=== PATIENT | male | born 1955 | race Caucasian/White ===

== ENCOUNTER 2019-08-11 21:57 | Inpatient (IN) | payer MEDICAID ==
[~2019-08-11] VITALS: Ht 167.6 cm; Wt 77.7 kg
[2019-08-11 22:00] VITALS: BP_SYST 182
[2019-08-11] MEDS ORDERED: D10W 250 ML IV SCH (22:45)
[2019-08-11 22:55] LABS: BASOPHILS # (AUTO) 0.1 K/uL (0.0-0.2); BASOPHILS % (AUTO) 1.1 % (0.0-2.0); EOSINOPHILS % (AUTO) 0.8 % (0.0-4.0); HEMOGLOBIN 12.8 g/dL (14.0-18.0); LYMPHOCYTES # (AUTO) 1.8 K/uL (1.0-5.5); LYMPHOCYTES % (AUTO) 29.4 % (20.5-51.5); MEAN CORPUSCULAR HEMOGLOBIN 31 pg (27-31); MEAN CORPUSCULAR HGB CONC 34 % (32-36); MEAN CORPUSCULAR VOLUME 93 fL (79.0-98.0); MONOCYTES # (AUTO) 0.7 K/uL (0.0-1.0); MONOCYTES % (AUTO) 12.5 % (1.7-9.3); NEUTROPHILS # (AUTO) 3.4 K/uL (1.8-7.7); NEUTROPHILS % (AUTO) 56.2 % (40.0-70.0); PLATELET COUNT (AUTO) 241 K/uL (130-430); RED BLOOD CELL COUNT(AUTO) 4.07 MIL/uL (4.2-6.2); RED CELL DISTRIBUTION WIDTH 13.7 % (9.0-15.0)
[2019-08-11 23:09] LABS: ANION GAP 10 (5-15); CALCIUM 8.8 mg/dL (8.4-11.0); CHLORIDE 103 mmol/L (98-107); CREATININE 2.46 mg/dL (0.55-1.30); GLUCOSE 77 mg/dL (70-99); POTASSIUM 3.8 mmol/L (3.5-5.1); SODIUM SERUM 137 mmol/L (136-145); UREA NITROGEN, BLOOD 35 mg/dL (8-21)
[2019-08-11 23:17] LABS: ALANINE AMINOTRANSFERASE 68 U/L (12-78); ALBUMIN 3.6 g/dL (3.4-4.8); ASPARTATE AMINOTRANSFERASE 42 U/L (10-37); LIPASE 358 U/L (73-393); TOTAL BILIRUBIN 0.1 mg/dL (0.0-1.0)
[2019-08-11] MEDS ORDERED: LOSA50TA28 PO (23:18)
[2019-08-11] MEDS ORDERED: SIMV40TA5 PO (23:18)
[2019-08-11] MEDS ORDERED: HYDR25TA4 PO (23:18)
[2019-08-11] MEDS ORDERED: GLIM4TAB2 PO (23:18)
[2019-08-11] MEDS ORDERED: AMLO2.5T2 PO ×2 (23:18→23:20)
[2019-08-11] MEDS ORDERED: METF-510 PO (23:20)
[2019-08-11] MEDS ORDERED: XALEYE OP (23:21)
[2019-08-11] MEDS ORDERED: BRI.2% EACH EYE (23:21)
[2019-08-11 23:22] LABS: GFR AFRICAN AMERICAN 34 mL/min (>90)
[2019-08-11 23:36] LABS: BILIRUBIN,URINE NEGATIVE (NEGATIVE); BLOOD, URINE NEGATIVE (NEGATIVE); CLARITY/URINE CLEAR (CLEAR); COLOR,URINE YELLOW (YELLOW); GLUCOSE,URINE NEGATIVE (NEGATIVE); KETONES,URINE NEGATIVE (NEGATIVE); LEUKOCYTE ESTERASE ,URINE NEGATIVE (NEGATIVE); NITRITE, URINE NEGATIVE (NEGATIVE); PH,URINE 6.5 (5.0-8.0); PROTEIN URINE 2+ (NEGATIVE); UROBILINOGEN,URINE 0.2 (0.2-1.0)
[2019-08-11 23:43] LABS: BACTERIA,URINE FEW /HPF (None Seen); RBC,URINE 0-3 /HPF (0-3); WBC,URINE 0-3 /HPF (0-3)
[2019-08-12] MEDS ORDERED: D5NS 1,000 ML IV SCH (00:34)
[2019-08-12] MEDS ORDERED: INSULIN REGULAR, HUMAN 100 UNITS/ML, 10 ML VIAL (humuLIN R) SUBCUT PRN (00:45)
[2019-08-12 01:30] VITALS: BP_SYST 155
[2019-08-12] MEDS ORDERED: MORPHINE 2 MG/ML INJ. SYRINGE IVP PRN ×2 (06:45)
[2019-08-12] MEDS ORDERED: MAGNESIUM SULFATE 50 ML IV PRN (06:45)
[2019-08-12] MEDS ORDERED: POTASSIUM CHLORIDE 20 MEQ TAB.PRT.SR PO PRN (06:45)
[2019-08-12] MEDS ORDERED: MUPIROCIN 2% TOPICAL OINTMENT 22 GM NS PRN (06:45)
[2019-08-12] MEDS ORDERED: ACETAMINOPHEN 325 MG TABLET PO PRN (06:45)
[2019-08-12] MEDS ORDERED: LORazepam 2 MG/ML VIAL IVP PRN (06:45)
[2019-08-12] MEDS ORDERED: ONDANSETRON HCL 4 MG/2 ML VIAL IVP PRN (06:45)
[2019-08-12] MEDS ORDERED: ZOLPIDEM TARTRATE 5 MG TABLET PO PRN (06:45)
[2019-08-12] MEDS ORDERED: DOCUSATE SODIUM 100 MG CAPSULE PO PRN (06:45)
[2019-08-12 08:00] VITALS: BP_SYST 138
[2019-08-12] MEDS ORDERED: amLODIPine BESYLATE 5 MG TABLET PO SCH (09:00)
[2019-08-12] MEDS ORDERED: HEPARIN SODIUM,PORCINE 5000 UNITS/ML VIAL SUBCUT SCH (09:00)
[2019-08-12] MEDS ORDERED: BRIMONIDINE TARTRATE 0.2% 5 mL EYE DROPS EACH EYE SCH (09:00)
[2019-08-12] MEDS ORDERED: LOSARTAN POTASSIUM 50 MG TABLET (COZAAR) PO SCH (09:00)
[2019-08-12] MEDS ORDERED: LATANOPROST 2.5 ML DROPS (XALATAN) OP SCH (09:00)
[2019-08-12 10:56] VITALS: BP_SYST 138
[2019-08-12 12:00] VITALS: BP_SYST 136
[2019-08-12] MEDS ORDERED: D10W 250 ML IV STA (23:43)
== END 2019-08-12 11:30 | disposition home or self-care (01) | DRG 48 ==
LOC: SED 21:57 → STU 08-12 00:34
PROVIDERS: ADMIT General Practice; ATTEND General Practice
DX: G90.8 Other disorders of autonomic nervous system (principal); N17.0 Acute kidney failure with tubular necrosis; E11.649 Type 2 diabetes mellitus with hypoglycemia without coma; E78.5 Hyperlipidemia, unspecified; I10 Essential (primary) hypertension; Z79.899 Other long term (current) drug therapy
CPT/HCPCS: 36415; 71045; 80053; 81000-TC; 82962; 83036; 83605; 83690-TC; 84484; 85025; 87040-TC; 99285; G0378; J1644; J7042

== ENCOUNTER 2019-08-19 20:09 | Inpatient (IN) | payer MEDICAID, SELFPAY ==
[~2019-08-19] VITALS: Ht 167.6 cm; Wt 74.8 kg
[~2019-08-19 20:09] MED LIST: AMLO2.5T2 PO; BRI.2% EACH EYE; LOSA50TA28 PO; SIMV40TA5 PO; XALEYE OP
--- NOTE | 2019-08-19 20:44 | NUR ---
Patient to ER bed 2 to gown for evaluation. Side rails up.
[2019-08-19 20:45] VITALS: BP_SYST 192
--- NOTE | 2019-08-19 21:04 | NUR ---
Pt's Son (Hang) informed he lives 2 blocks away from [facility], phone number [phone]. Call for update and anything else
--- NOTE | 2019-08-19 21:06 | NUR ---
Patient came to ER. C/O Dizziness and weakness x today. Patient states "headache and weakness x today this morning, check glucose this morning +400." HX DM and HTN. A/O,X4, weakness, headache, pain rate 5/10, place patient on library monitor, BP 174/92.
--- NOTE | 2019-08-19 21:22 | NUR ---
ER Dr. Haskins at bedside examining patient.
[2019-08-19] MEDS ORDERED: hydrALAZINE HCL 20 MG/ML VIAL IVP ONE ×2 (21:30→22:30)
[2019-08-19] MEDS ORDERED: GLIP5TAB13 PO (21:32)
[2019-08-19] MEDS ORDERED: GLUXR500 PO (21:32)
--- NOTE | 2019-08-19 21:33 | NUR ---
Patient came back from CT scan.
--- NOTE | 2019-08-19 21:35 | NUR ---
Accu check 51, Dr. Haskins notified, given oral juice 2 small cup, Patient A/O, X4.
[2019-08-19 21:42] LABS: BASOPHILS % (AUTO) 0.3 % (0.0-2.0); EOSINOPHILS % (AUTO) 0.4 % (0.0-4.0); HEMOGLOBIN 12.2 g/dL (14.0-18.0); LYMPHOCYTES # (AUTO) 1.7 K/uL (1.0-5.5); LYMPHOCYTES % (AUTO) 28.8 % (20.5-51.5); MEAN CORPUSCULAR HEMOGLOBIN 31 pg (27-31); MEAN CORPUSCULAR HGB CONC 34 % (32-36); MEAN CORPUSCULAR VOLUME 90 fL (79.0-98.0); MONOCYTES # (AUTO) 0.6 K/uL (0.0-1.0); MONOCYTES % (AUTO) 9.5 % (1.7-9.3); NEUTROPHILS # (AUTO) 3.6 K/uL (1.8-7.7); PLATELET COUNT (AUTO) 188 K/uL (130-430); RED BLOOD CELL COUNT(AUTO) 3.99 MIL/uL (4.2-6.2); RED CELL DISTRIBUTION WIDTH 12.7 % (9.0-15.0); WHITE BLOOD COUNT (AUTO) 5.9 K/uL (4.8-10.8)
[2019-08-19 21:48] LABS: ANION GAP 9 (5-15); CALCIUM 8.4 mg/dL (8.4-11.0); CHLORIDE 102 mmol/L (98-107); CREATININE 2.63 mg/dL (0.55-1.30); GLUCOSE 66 mg/dL (70-99); POTASSIUM 3.9 mmol/L (3.5-5.1); SODIUM SERUM 134 mmol/L (136-145); UREA NITROGEN, BLOOD 43 mg/dL (8-21)
[2019-08-19 21:49] LABS: GFR AFRICAN AMERICAN 32 mL/min (>90)
[2019-08-19 21:57] LABS: ALANINE AMINOTRANSFERASE 29 U/L (12-78); ALBUMIN 3.1 g/dL (3.4-4.8); ASPARTATE AMINOTRANSFERASE 19 U/L (10-37); TOTAL BILIRUBIN 0.3 mg/dL (0.0-1.0)
[2019-08-19 22:19] LABS: BILIRUBIN,URINE NEGATIVE (NEGATIVE); BLOOD, URINE 1+ (NEGATIVE); CLARITY/URINE CLEAR (CLEAR); COLOR,URINE YELLOW (YELLOW); GLUCOSE,URINE NEGATIVE (NEGATIVE); KETONES,URINE NEGATIVE (NEGATIVE); LEUKOCYTE ESTERASE ,URINE NEGATIVE (NEGATIVE); NITRITE, URINE NEGATIVE (NEGATIVE); PROTEIN URINE 3+ (NEGATIVE)
--- NOTE | 2019-08-19 22:19 | NUR ---
Accu check 77, BP 178/94 -Dr. Haskins notified.
[2019-08-19 22:26] LABS: BACTERIA,URINE None Seen /HPF (None Seen); MUCUS,URINE None Seen /LPF (None Seen); RBC,URINE NONE SEEN /HPF (0-3); WBC,URINE NONE SEEN /HPF (0-3)
[2019-08-20] MEDS: NACL 0.9% 1,000 ML IV SCH ×3 (00:04→20:04)
--- NOTE | 2019-08-20 00:16 | NUR ---
Medication reconciliation completed with information provided by patient. Any prior medication reconciliation on file was reviewed and corrected.
--- NOTE | 2019-08-20 00:21 | NUR ---
Patient will be admitted to care of Dr. Pappas. Admitted to Tele unit. Will go to room 103B. Belongings list completed. Complete and up to date summary report printed. SBAR report to be given at bedside with opportunity for questions.
--- NOTE | 2019-08-20 00:39 | NUR ---
ADMIT NOTE Received pt from ER to the floor with a diagnosis of intractable dizziness. Admission process initiated. patient oriented to pain management, safety and call light-teach back done.
--- NOTE | 2019-08-20 00:40 | NUR ---
Transfer to Tele via ACLS protocol. Licensed nurse present. IV present no signs or symptoms of infiltration.
[2019-08-20 00:54] VITALS: BP_SYST 144
--- NOTE | 2019-08-20 02:30 | NUR ---
ROUNDS pt lying in bed. no signs of acute distress noted. breathing is even and unlabored. iv site patent, no signs of infiltration and infection. bed in lowest position and locked. bed alarm is on. call light with patient. verbalized and demonstrated understanding to use call light if help is needed. will continue to monitor.
--- NOTE | 2019-08-20 04:30 | NUR ---
ROUNDS pt still in bed, sleeping. no signs of discomfort noted. safety and fall precautions in place. will continue to monitor.
[2019-08-20] MEDS ORDERED: DEXTROSE 50% JECT 50 ML DISP.SYRIN IVP ONE (06:30)
[2019-08-20] MEDS ORDERED: DEXTROSE 50% JECT 50 ML DISP.SYRIN ONE (06:51)
--- NOTE | 2019-08-20 06:55 | NUR ---
CLOSING NOTES/BLOOD SUGAR pt lying in bed. no signs of acute distress. iv site patent, no infiltration and infection noted. ivf infusing well. bed at lowest position and locked. bed alarm is on. call light with pt, verbalized understanding to call for help if needed. accucheck done at 0620, BS 22, pt given 2 boxes of orange juice, Dr ramsey made aware, ordered D50 IVP, reassessed at 0650, BS at 212. pt denies any pain or discomfort. skin is dry and warm to touch. all needs met at this time. will endorse to day shift.
--- NOTE | 2019-08-20 07:15 | NUR ---
Received patient and endorsed report from [facility] shift nurse. In no acute distress. Greeted patient. Awake in bed with side rails x 3 up call light with in reach. Denies pain. Breathing even and unlabored on room air.
[2019-08-20 07:37] LABS: BASOPHILS % (AUTO) 0.5 % (0.0-2.0); HEMATOCRIT 36.7 % (36-54); HEMOGLOBIN 12.4 g/dL (14.0-18.0); LYMPHOCYTES # (AUTO) 0.9 K/uL (1.0-5.5); LYMPHOCYTES % (AUTO) 19.2 % (20.5-51.5); MEAN CORPUSCULAR HEMOGLOBIN 31 pg (27-31); MEAN CORPUSCULAR HGB CONC 34 % (32-36); MEAN CORPUSCULAR VOLUME 91 fL (79.0-98.0); MONOCYTES # (AUTO) 0.5 K/uL (0.0-1.0); MONOCYTES % (AUTO) 10.6 % (1.7-9.3); NEUTROPHILS # (AUTO) 3.4 K/uL (1.8-7.7); NEUTROPHILS % (AUTO) 69.7 % (40.0-70.0); PLATELET COUNT (AUTO) 190 K/uL (130-430); RED BLOOD CELL COUNT(AUTO) 4.05 MIL/uL (4.2-6.2); RED CELL DISTRIBUTION WIDTH 12.6 % (9.0-15.0); WHITE BLOOD COUNT (AUTO) 4.9 K/uL (4.8-10.8)
[2019-08-20 07:49] LABS: CALCIUM 8.3 mg/dL (8.4-11.0); CREATININE 2.65 mg/dL (0.55-1.30); POTASSIUM 3.7 mmol/L (3.5-5.1); TOTAL BILIRUBIN 0.3 mg/dL (0.0-1.0)
--- NOTE | 2019-08-20 09:15 | NUR ---
Patient sitting in bed eating breakfast awake and alert in no acute distress. Breathing even and unlabored on room air. Denies pain. Call light with in reach.
[2019-08-20] MEDS: LOSARTAN POTASSIUM 50 MG TABLET (COZAAR) PO SCH ×2 (09:21→20:53)
[2019-08-20] MEDS: HEPARIN SODIUM,PORCINE 5000 UNITS/ML VIAL SUBCUT SCH ×2 (09:24→20:55)
--- NOTE | 2019-08-20 11:15 | NUR ---
Patient sleeping in bed with side rails x 3 up. Call light with in reach. Breathing even and unlabored on room air.
[2019-08-20 12:00] VITALS: BP_SYST 113
--- NOTE | 2019-08-20 13:15 | NUR ---
Patient sitting in bed with side rails x 3 up call light with in reach. Eating lunch. Breathing even and unlabored. In no acute distress. Denies pain,.
--- NOTE | 2019-08-20 14:23 | NUR ---
Called MD Leigh regarding patient's statement of having a headache with 3/10 pain scale. New order Tylenol 500 mg every 6 hours as needed for mild pain. Orders placed.
[2019-08-20] MEDS ORDERED: ACETAMINOPHEN 500 MG TABLET ONE (14:41)
--- NOTE | 2019-08-20 15:15 | NUR ---
Patient stated headache is gone. Sleeping in bed with side rails x 3 up call light with in reach. Breathing even and unlabored on room air. In no acute distress. Addendum: 08/20/19 at 1838 by Nadya Li RN *Note error: Patient was awake.
[2019-08-20] MEDS: ACETAMINOPHEN 325 MG TABLET PO PRN ×2 (15:23→21:36)
[2019-08-20 16:10] VITALS: BP_SYST 127
--- NOTE | 2019-08-20 17:15 | NUR ---
Patient sitting in bed awake and alert. Denies pain. Breathing even and unlabored. Call light with in reach. Side rails x 3 up.
--- NOTE | 2019-08-20 18:38 | NUR ---
Patient sitting in bed awake and alert, eating dinner. Denies pain. Breathing even and unlabored. Call light with in reach. Side rails x 3 up.
--- NOTE | 2019-08-20 19:15 | NUR ---
OPENING NOTES received report from day shift rn. pt lying in bed, aox3. no signs of acute distress noted. ivf infusing well, no signs of infiltration and infection noted. skin is warm and dry to touch. no signs of hypoglycemia at this time. bed alarm is on, bed at lowest position and locked. call light with pt, educated pt to utilize call light if help is needed, demonstrated back proper use of call light. will continue to monitor.
--- NOTE | 2019-08-20 19:18 | NUR ---
Endorsed patient and gave report to NOC shift nurse. Patient sitting in bed. Side rails x 3 up. Call light with in reach. Denies pain.
[2019-08-20 20:00] VITALS: BP_SYST 159
--- NOTE | 2019-08-20 21:00 | NUR ---
ROUNDS pt lying in bed. no signs of acute distress. safety and fall precautions in place. will continue to monitor.
[2019-08-20] MEDS ORDERED: DEXTROSE 50% JECT 50 ML DISP.SYRIN IVP PRN (22:00)
[2019-08-20] MEDS ORDERED: D5NS 1,000 ML IV SCH (22:00)
--- NOTE | 2019-08-20 23:00 | NUR ---
ROUNDS pt is still in bed. no signs of discomfort noted. safety and fall precautions maintained. will continue to monitor.
[2019-08-21 00:38] VITALS: BP_SYST 137
--- NOTE | 2019-08-21 01:00 | NUR ---
ROUNDS/ORAL CARE pt requested to use bathroom and for oral care. pt ambulated with assist to bathroom and back to bed, pt tolerated well. no signs of acute distress noted. safety and fall precautions maintained. will continue to monitor.
--- NOTE | 2019-08-21 03:00 | NUR ---
ROUNDS pt lying in bed, asleep. no signs of discomfort noted. safety and fall precautions in place. will continue to monitor.
--- NOTE | 2019-08-21 05:00 | NUR ---
ROUNDS pt is lying in bed. no discomfort noted. safety and fall precautions in place. will continue to monitor.
[2019-08-21] MEDS: ACETAMINOPHEN 325 MG TABLET PO PRN ×2 (06:14→16:41)
[2019-08-21] MEDS: D10W 1,000 ML IV SCH ×2 (06:47→21:20)
--- NOTE | 2019-08-21 06:54 | NUR ---
CLOSING NOTES/NEW IV SITE/HYPOGLYCEMIA pt lying in bed. no signs of distress noted. dc'ed left AC iv site, catheter fully intact, no active bleeding noted. inserted new iv at right FA 20G, no signs of infiltration noted, ivf infusing well. Accucheck done, BS at 40, D50 administered per PRN order, reassessed BS at 183, Dr. Leigh made aware, MD ordered D10W at 80 ml/hr. Skin warm and dry to touch, no s/s of hypoglycemia at this time. All needs met throughout shift. Fall and safety precautions maintained throughout shift. Will continue to monitor until patient care is endorsed to oncoming dayshift nurse.
[2019-08-21 07:00] VITALS: BP_SYST 128
--- NOTE | 2019-08-21 07:20 | NUR ---
Report obtained from night nurse LIZZY Rosado and this nurse assume care of patient from 0730 to 1030. Patient stated that since patient had elevated temp during the night, he would be antisqueak filler for COVID, but needed to be transferred to [place]. Report given to nurse on and patient was transferred via bed. VS this am- 98.6 F-92-18, BP 128/65, O2 sat- 94% RA. Had a cough about 1000. IV D10 infusing at 80 ml/hr into R FA, with 20 g catheter. Addendum: 08/21/19 at 1407 by Jayda Espinoza RN REPORT OBTAINED FROM NIKO MICHAEL RN THIS AM, AND REPORT GIVEN TO LIZZY ROSADO ON . SHE IS AWARE TO DO COVID SWAB AND ABOUT BLOOD GLUCOSE TO BE DONE AC & HS. TRANSFERRED VIA BED, AT 1030, TO .
[2019-08-21 07:47] LABS: BASOPHILS % (AUTO) 0.4 % (0.0-2.0); EOSINOPHILS % (AUTO) 0.1 % (0.0-4.0); HEMATOCRIT 33.4 % (36-54); HEMOGLOBIN 11.3 g/dL (14.0-18.0); LYMPHOCYTES # (AUTO) 1.7 K/uL (1.0-5.5); LYMPHOCYTES % (AUTO) 25.5 % (20.5-51.5); MEAN CORPUSCULAR HEMOGLOBIN 30 pg (27-31); MEAN CORPUSCULAR HGB CONC 34 % (32-36); MEAN CORPUSCULAR VOLUME 90 fL (79.0-98.0); MONOCYTES # (AUTO) 0.5 K/uL (0.0-1.0); NEUTROPHILS # (AUTO) 4.3 K/uL (1.8-7.7); PLATELET COUNT (AUTO) 199 K/uL (130-430); RED BLOOD CELL COUNT(AUTO) 3.71 MIL/uL (4.2-6.2); RED CELL DISTRIBUTION WIDTH 12.7 % (9.0-15.0); WHITE BLOOD COUNT (AUTO) 6.6 K/uL (4.8-10.8)
[2019-08-21 07:57] LABS: CALCIUM 7.8 mg/dL (8.4-11.0); CREATININE 2.29 mg/dL (0.55-1.30); POTASSIUM 3.9 mmol/L (3.5-5.1)
[2019-08-21 08:00] VITALS: BP_SYST 128
[2019-08-21] MEDS: HEPARIN SODIUM,PORCINE 5000 UNITS/ML VIAL SUBCUT SCH ×2 (09:32→21:24)
[2019-08-21] MEDS: LOSARTAN POTASSIUM 50 MG TABLET (COZAAR) PO SCH ×2 (09:33→21:20)
[2019-08-21 09:49] LABS: ERYTHROCYTE SEDIMENTATION RATE 80 MM/HR (0-15)
--- NOTE | 2019-08-21 10:55 | NUR ---
ASSUMED PATIENT CARE RESTING IN BED, NO SIGN OF DISTRESS ON ROOM AIR. NO PAIN AT THIS TIME. AFEBRILE. TRANSFERRED PATIENT TO AN ISOLATION ROOM TO RULE OUT POSSIBLE COVID-19. EXPLAINED TO PATIENT REASON FOR ISOLATION AND VERBALIZED UNDERSTANDING. PATIENT REPORTED COUGHING OUT CLEAR, THIN SPUTUM. ATTEMPTED TO GET SPECIMEN FOR COVID TEST VIA NASAL SWAB BUT PATIENT DID NOT TOLERATE IT AND SAID IT WAS TOO PAINFUL. ORAL SWAB DONE INSTEAD. ROOM ORIENTATION DONE. FALL AND SAFETY CHECKS DONE. ENCOURAGED TO CALL ANYTIME FOR HELP. SPECIMEN BROUGHT TO LAB.
[2019-08-21 12:19] VITALS: BP_SYST 146
[2019-08-21] MEDS: INSULIN REGULAR, HUMAN 100 UNITS/ML, 10 ML VIAL (humuLIN R) SUBCUT PRN ×2 (12:30→21:24)
--- NOTE | 2019-08-21 12:30 | NUR ---
BLOOD SUGAR CHECK RESULT OF 170 MG/DL
--- NOTE | 2019-08-21 14:20 | NUR ---
BOWEL MOVEMENT AMBULATES INDEPENDENTLY TO THE RESTROOM. DENIES ANY PAIN OR SHORTNESS OF BREATH. NO DIZZINESS. ATE MOST OF HIS LUNCH. SAFETY CHECKS DONE. WILL CONTINUE TO MONITOR.
[2019-08-21 16:30] VITALS: BP_SYST 158
--- NOTE | 2019-08-21 16:45 | NUR ---
HEADACHE AND BLOOD SUGAR CHECK RESTING IN BED, NO SHORTNESS OF BREATH ON ROOM AIR. IVF STILL INFUSING WELL. PATIENT COMPLAINED OF HEADACHE. ENCOURAGED TO DRINK MORE FLUIDS, AND DEEP BREATHING. ADMINISTERED TYLENOL. BLOOD SUGAR CHECK OF 140 GM/DL AT THIS TIME. FALL AND SAFETY CHECKS DONE. WILL CONTINUE TO MONITOR.
[2019-08-21] MEDS ORDERED: AZITHROMYCIN 250 MG TABLET PO ONE (18:45)
--- NOTE | 2019-08-21 18:49 | NUR ---
COVID POSITIVE, CLOSING NOTES RECEIVED A CALL FROM LAB STAFF, THUAN CONFIRMING THAT THE PATIENT IS POSITIVE FOR COVID-19. WILL INFORM DR[address] MACK. PATIENT IS RESTING IN BED AT THIS TIME. NO SHORTNESS OF BREATH, AFEBRILE AND DENIES ANY PAIN. IVF INFUSING WELL. ENCOURAGED TO EAT DINNER. ALL NEEDS MET THROUGHOUT SHIFT. SAFETY CHECKS DONE. CALL LIGHT WITHIN REACH. WILL ENDORSE TO NIGHT NURSE.
--- NOTE | 2019-08-21 19:19 | NUR ---
CONSULTATION PAGED/CALLED Reason for Consultation: COVID POSITIVE Person Who was Notified: KARAN Consulting Physician: POONAM Software Educator Specialty: Ordering Physician: FREDERICK
--- NOTE | 2019-08-21 19:30 | NUR ---
Opening note Received SBAR report from LIZZY Rosado. Presently patient is sinus rhythm on telemonitor. Reviewed eMAR and orders, will continue with plan of care.
[2019-08-21 20:20] VITALS: BP_SYST 166
--- NOTE | 2019-08-21 21:25 | NUR ---
Meds Due medications given. Patient educated on indication/side effects and he verbalized understanding. He reports that he didn't like his meal and requested gelatin and orange juice snacks which were provided. Fingerstick BG test done w/result of 227mg/dL and it was covered with insulin per sliding scale. Safety precautions in place and call light w/in reach.
[2019-08-21] MEDS: ASCORBIC ACID 500 MG TABLET PO SCH (21:31)
[2019-08-22] VITALS (8 sets, daily range): BP systolic 139–176
[2019-08-22] MEDS: ACETAMINOPHEN 325 MG TABLET PO PRN ×4 (00:58→20:05)
--- NOTE | 2019-08-22 01:00 | NUR ---
rounds Patient awake, he reports mild headache, and administered Tylenol. Will continue to monitor.
--- NOTE | 2019-08-22 02:00 | NUR ---
Rounds Patient resting in bed, eyes closed, though easy to awake. Reports no longer has headache; temp decreased to 98.9. IVF infusing well. Patient requested lights off and has no further needs. Safety precautions in place and call light w/in reach.
--- NOTE | 2019-08-22 03:40 | NUR ---
resting Patient resting in bed, no sign of distress. Nonlabored breathing noted. Call light w/in reach, will continue to monitor.
--- NOTE | 2019-08-22 05:00 | NUR ---
son Hang Patient's son Hang called to ask how his father is doing. I updated him and answered his questions, though I did not provide specific test results.
[2019-08-22] MEDS: INSULIN REGULAR, HUMAN 100 UNITS/ML, 10 ML VIAL (humuLIN R) SUBCUT PRN ×3 (07:04→17:55)
--- NOTE | 2019-08-22 07:05 | NUR ---
closing notes / accucheck Patient resting in comfortable position, denies pain. fingerstick bg test done w/ result of 235 and 4u insulin given per sliding scale order. Patient had temp of 100.8 and tylenol given as ordered. Provided pitcher of ice water. Safety and isolation precautions in place. Needs met throughout shift, will endorse care.
--- NOTE | 2019-08-22 07:07 | NUR ---
Nutrition Update Billy Scale 16 noted. Pt admitted for Intractable Dizziness Diet: [facility] BMI: 26.6 kg/m2 RD to follow per nutrition care standards.
[2019-08-22] MEDS: D10W 1,000 ML IV SCH ×2 (08:00→20:15)
--- NOTE | 2019-08-22 08:00 | NUR ---
INITIAL NOTES RESTING IN BED, NO SHORTNESS OF BREATH ON ROOM AIR. DENIES ANY PAIN. AFEBRILE. IVF INFUSING WELL. AMBULATES INDEPENDENTLY TO THE RESTROOM. ENCOURAGED TO EAT BREAKFAST. FALL AND SAFETY CHECKS IN PLACE. CALL LIGHT WITHIN REACH. WILL CONTINUE TO MONITOR.
[2019-08-22] MEDS: AZITHROMYCIN 250 MG TABLET PO SCH (08:30)
[2019-08-22] MEDS: ASCORBIC ACID 500 MG TABLET PO SCH ×2 (08:30→12:45)
[2019-08-22] MEDS: HEPARIN SODIUM,PORCINE 5000 UNITS/ML VIAL SUBCUT SCH (08:30)
[2019-08-22] MEDS: LOSARTAN POTASSIUM 50 MG TABLET (COZAAR) PO SCH ×2 (08:30→20:03)
--- NOTE | 2019-08-22 09:00 | NUR ---
MED PASS PATIENT ATE MOST OF HIS BREAKFAST. ENCOURAGED MORE FLUIDS. TOOK HIS MEDICATIONS WELL, EXPLAINED BENEFITS, VERBALIZED UNDERSTANDING. SAFETY CHECKS DONE. WILL CONTINUE TO MONITOR.
--- NOTE | 2019-08-22 09:50 | NUR ---
CONSULTATION PAGED/CALLED Reason for Consultation: [] POSITIVE COVID Person Who was Notified: [] DR COPELAND Consulting Physician: [] DR COPELAND Freelance Copywriter Specialty: [] PULMO Ordering Physician: [] DR MACK
[2019-08-22] MEDS ORDERED: ENOXAPARIN SODIUM 40 MG/0.4 ML SYRINGE SUBCUT ONE (10:30)
--- NOTE | 2019-08-22 11:00 | NUR ---
ROUNDS DR. MACK MADE ROUNDS. INFORMED THAT PATIENT'S BLOOD SUGAR IS NOW STABLE. HE MADE ORDERS TO CHANGE THE IVF TO D5 WATER AT THE SAME RATE.
[2019-08-22] MEDS: D5W 1,000 ML IV SCH ×2 (11:33→23:59)
--- NOTE | 2019-08-22 12:08 | NUR ---
BLOOD SUGAR CHECK RESULT OF 325 MG/DL. INSULIN COVERAGE GIVEN. NO SHORTNESS OF BREATH AND IS AFEBRILE AT THIS TIME. WILL CONTINUE TO MONITOR.
[2019-08-22] MEDS ORDERED: IVERMECTIN 3 MG TABLET PO ONE (12:45)
[2019-08-22] MEDS: ENOXAPARIN SODIUM 40 MG/0.4 ML SYRINGE SUBCUT SCH (12:45)
[2019-08-22] MEDS: CHOLECALCIFEROL (VITAMIN D3) 2,000 UNIT TABLET PO SCH (13:30)
--- NOTE | 2019-08-22 13:50 | NUR ---
MED PASS EXPLAINED TO PATIENT BENEFITS OF HIS NEW MEDICATIONS, VERBALIZED UNDERSTANDING. TOOK HIS MEDS WELL. SAFETY CHECKS DONE. WILL CONTINUE TO MONITOR
--- NOTE | 2019-08-22 15:21 | NUR ---
FEVER 100.4 FEBRILE. ENCOURAGED TO DRINK MORE FLUIDS. ADVISED PATIENT TO ASSUME A PRONE OR SIDE-LYING POSITION. GAVE TYLENOL FOR FEVER. WILL CONTINUE TO MONITOR.
--- NOTE | 2019-08-22 16:10 | NUR ---
AFEBRILE TEMPERATURE RECHECKED 98.2. DENIES ANY PAIN OR SHORTNESS OF BREATH. ENCOURAGED FLUIDS. PROVIDED WITH MORE COOLING MEASURES. SAFETY CHECKS DONE. WILL CONTINUE TO MONITOR.
--- NOTE | 2019-08-22 18:45 | NUR ---
CLOSING NOTES RESTING IN BED, TALKING TO FAMILY. NO SIGN OF PAIN OR SHORTNESS OF BREATH. IVF INFUSING WELL. ALL NEEDS MET THROUGHOUT SHIFT. FALL AND SAFETY CHECKS IN PLACE. CALL LIGHT WITHIN REACH. WILL ENDORSE TO NIGHT NURSE.
--- NOTE | 2019-08-22 19:50 | NUR ---
Opening note Received patient awake, resting in bed, covered in blankets and reporting he is cold. He has temp of 102.0, All of his dinner is on tray, he reports he has no appetite, and adds he [place] not taste or smell the food and does not like it., He also reports a headache, will administer tylenol as ordered and provide cooling measures. Updated board and reviewed plan of care.
--- NOTE | 2019-08-22 21:00 | NUR ---
Pagevel Leigh s/w Dr. Leigh and informed temp of 102 and elevated B/P Cozar and Tylenol given. Also informed he does not have PRN B/P meds; he said wait for Cozar to have effect and patient is Covid +. I informed notifying d/t sepsis critieria and he said no further orders. I asked if he has notified family patient is Covid + and he said he has not spoken with son after result came back + and also said that I can inform son of positive result.
--- NOTE | 2019-08-22 21:15 | NUR ---
Temp reassess Temp decreased to 101.0, B/P decreased to 139/75 HR 92 and he reports headache is gone. He covered himself with blanket and I removed it, explained he still has temp and let him cover with sheet. Continued with cooling measures, and will reassess-continue to monitor.
--- NOTE | 2019-08-22 22:10 | NUR ---
Temp reassess temp continues to decrease, presently at 100.3. Provided with cooling measures, and encouraged patient to drink ice water. Patient denies headache, dizzines. Will continue to monitor.
--- NOTE | 2019-08-22 23:05 | NUR ---
rounds Patient is awake, temp is 99.1. Patient put on his PJ pants and covered self with blanket. No SOB, denies pain. No longer on cooling measures.
[2019-08-23 00:05] VITALS: BP_SYST 153
[2019-08-23] MEDS: ACETAMINOPHEN 325 MG TABLET PO PRN ×3 (01:31→19:05)
--- NOTE | 2019-08-23 01:34 | NUR ---
Temp 100.1 / tylenol Tylenol given for temp of 100.1, Patient denies headache, does not want cooling measure. IVF infusing well. Will continue to monitor.
--- NOTE | 2019-08-23 02:25 | NUR ---
temp recheck temp is 99.5
--- NOTE | 2019-08-23 04:30 | NUR ---
sleeping resting, no sign of distress, nonlabored breathing
--- NOTE | 2019-08-23 04:45 | NUR ---
s/w son s/w son Hang, he is aware of patients diagnosis
[2019-08-23 05:30] VITALS: BP_SYST 145
[2019-08-23] MEDS: INSULIN REGULAR, HUMAN 100 UNITS/ML, 10 ML VIAL (humuLIN R) SUBCUT PRN ×4 (07:00→22:33)
--- NOTE | 2019-08-23 07:00 | NUR ---
closing notes / accucheck Patient resting in comfortable position, denies pain. fingerstick bg test done w/ result of 203 and 4u insulin given per sliding scale order. Provided pitcher of ice water. Safety and isolation precautions in place. Needs met throughout shift, will endorse care.
[2019-08-23] MEDS: ENOXAPARIN SODIUM 40 MG/0.4 ML SYRINGE SUBCUT SCH ×2 (07:39→09:00)
[2019-08-23 08:00] VITALS: BP_SYST 146
--- NOTE | 2019-08-23 08:00 | NUR ---
Opening Notes & Tylenol x fever Patient is awake, alert and oriented x4, resting in bed. Patient denies any pain at this time. No resp distress noted. Breathing is even and unlabored. Patient was noted with an elevated temperature of 100.5 F. Patients blankets were removed, cold packs placed underneath armpits. Nurse administered Tylenol 650 mg PO x fever. IV site noted on right FA, 20 gauge. D5W @ 80 ml/hr, infusing well. Skin intact. Patient reported c/o cough, requesting cough medicine. Will ask Dr. Leigh. Patient is ambulatory, steady gait. All needs met at this time. Safety and fall precautions in place. Call light within reach. Bed in lowest position, locked. Will continue to monitor.
[2019-08-23] MEDS: D10W 1,000 ML IV SCH (08:45)
[2019-08-23] MEDS: AZITHROMYCIN 250 MG TABLET PO SCH (09:00)
[2019-08-23] MEDS ORDERED: ENOXAPARIN SODIUM 40 MG/0.4 ML SYRINGE SUBCUT SCH (09:00)
[2019-08-23] MEDS: LOSARTAN POTASSIUM 50 MG TABLET (COZAAR) PO SCH ×2 (09:00→22:00)
[2019-08-23] MEDS: CHOLECALCIFEROL (VITAMIN D3) 2,000 UNIT TABLET PO SCH (09:00)
[2019-08-23] MEDS: ASCORBIC ACID 500 MG TABLET PO SCH (09:00)
--- NOTE | 2019-08-23 09:30 | NUR ---
Fever Reassessment Patients temperature was noted at 98.6. No distress noted at this time. Will continue to monitor.
--- NOTE | 2019-08-23 11:30 | NUR ---
Blood Sugar Patients blood sugar was noted at 289 mg/dL. Administered 6 units of regular insulin per sliding scale, tolerated well. Will continue to monitor.
[2019-08-23 12:00] VITALS: BP_SYST 135
--- NOTE | 2019-08-23 12:30 | NUR ---
Notes Patient is awake, alert and oriented x3, resting in bed. No resp distress noted. Breathing is even and unlabored. Patient denies any pain at this time. All needs met at this time. Patient is eating lunch at this time. Safety and fall precautions in place. Call light within reach. Bed in lowest position, alarm on, locked.
[2019-08-23] MEDS: D5W 1,000 ML IV SCH (12:59)
--- NOTE | 2019-08-23 14:20 | NUR ---
Notes Patient is resting in bed. No resp distress noted. Breathing is even and unlabored. Patient is ambulatory and able to assist self to restroom. No needs at this time. Safety and fall measures in place. Call light within reach. Bed in lowest position, alarm on, locked.
[2019-08-23 16:00] VITALS: BP_SYST 153
--- NOTE | 2019-08-23 16:00 | NUR ---
Elevated D-Dimer Reported elevated D-Dimer to Dr. Pearce. D-Dimer of 913. Obtained new orders. Continue with Lovenox IM injection 1 mg/kg Q12H. Placed a telephone order with pharmacy. Noted and carried out.
--- NOTE | 2019-08-23 16:06 | NUR ---
Notes Patient is resting in bed, eyes closed. No resp distress noted at this time. Breathing is even and unlabored. Patient denies any pain at this time. All needs met at this time. Safety and fall precautions in place. Call light within reach. Bed in lowest position, locked. Will continue to monitor.
[2019-08-23] MEDS ORDERED: ENOXAPARIN SODIUM 80 MG/0.8 ML SYRINGE SUBCUT ONE (17:00)
--- NOTE | 2019-08-23 17:30 | NUR ---
Blood Sugar Patients blood sugar was noted at 260 mg/dL. Administered 6 units of regular insulin per sliding scale. Tolerated well. Will continue to monitor.
[2019-08-23] MEDS: NACL 0.9% 1,000 ML IV SCH (18:13)
--- NOTE | 2019-08-23 18:35 | NUR ---
Elevated Temperature Patients temperature was noted at 100.1 F via temporal artery scan. Patient was given cold packs to place underneath armpits and Tylenol 650 mg for fever. Tolerated well. Will continue to monitor.
--- NOTE | 2019-08-23 19:00 | NUR ---
Closing Notes Patient is resting in bed, eating dinner. No resp distress noted at this time. Breathing is even and unlabored. Patient denies any pain at this time. Emptied of urinal, 1000 cc of clear and yellow urine. Safety and fall measures in place. Call light within reach. Bed in lowest position, alarm on, locked. Will endorse to next nurse.
--- NOTE | 2019-08-23 19:30 | NUR ---
OPENING NOTE RECEIVED CARE OF PT AND SBAR REPORT. PT IS AWAKE AND ORIENTED, RESTING IN BED, NO S/S OF ACUTE DISTRESS NOTED AT THIS TIME. BREATHING IS UNLABORED TO ROOM AIR, NO S/S OF RESPIRATORY DISTRESS NOTED. PT IS SR ON TELE MONITOR. SAFETY AND FALL PRECAUTIONS ARE IN PLACE. BED IS LOCKED IN LOWEST POSITION. CALL LIGHT IS WITH PT. ISOLATION PRECAUTIONS MAINTAINED. WILL MONITOR.
[2019-08-23 20:00] VITALS: BP_SYST 140
--- NOTE | 2019-08-23 21:04 | NUR ---
REPORT GIVEN TO LIZZY JOSEPH FOR CONTINUITY OF CARE.
--- NOTE | 2019-08-23 21:05 | NUR ---
OPENING NOTE/RECEIVED REPORT FROM LIZZY BALDERAS: Bedside report was given from LIZZY Balderas. No further questions noted. Patient is awake at this time, AOx4. No s/s of acute distress noted. Breathing is even and unlabored. IVF infusing well. IV site without s/s of infection or infiltration. Bed locked in lowest position, call light with patient. Patient educated on importance and use of call light. Patient verbalized understanding and demonstrated proper use. Bed alarm not indicated as patient is ambulatory unassisted with a steady gait. No new needs at this time. Will continue to monitor.
--- NOTE | 2019-08-23 23:39 | NUR ---
ROUNDS: Patient is asleep at this time. Breathing is even and unlabored. Bed locked in lowest position, call light with patient. Will continue to monitor.
[2019-08-24] VITALS: BP_SYST 142
--- NOTE | 2019-08-24 01:15 | NUR ---
ROUNDS: Patient is asleep at this time. Breathing is even and unlabored. Bed locked in lowest position, call light with patient. Will continue to monitor.
--- NOTE | 2019-08-24 03:20 | NUR ---
ROUNDS: Patient is asleep at this time. No s/s of acute distress noted. Breathing is even and unlabored. Bed locked in lowest position. Call light with patient. Will continue to monitor.
[2019-08-24 04:00] VITALS: BP_SYST 140
--- NOTE | 2019-08-24 05:07 | NUR ---
SPOKE WITH PATIENT'S SON, MONICA: Spoke with patient's son. All questions answered. No further questions or concerns.
[2019-08-24] MEDS: NACL 0.9% 1,000 ML IV SCH ×2 (06:00→17:11)
[2019-08-24] MEDS: ACETAMINOPHEN 325 MG TABLET PO PRN (06:05)
--- NOTE | 2019-08-24 06:05 | NUR ---
Elevated Temperature Patients temperature was noted at 100.6 F via temporal artery scan. Patient was given Tylenol 500 mg for fever. Tolerated well. Patient is covered with blankets and was encouraged to remove blankets. Patient refused removal of blankets. Patient was educated on blankets and fevers. Patient said, "no it is okay" and he did not let me remove the blankets. Will continue to monitor.
[2019-08-24] MEDS: ENOXAPARIN SODIUM 80 MG/0.8 ML SYRINGE SUBCUT SCH ×2 (06:33→17:31)
[2019-08-24] MEDS: INSULIN REGULAR, HUMAN 100 UNITS/ML, 10 ML VIAL (humuLIN R) SUBCUT PRN ×3 (06:34→21:00)
--- NOTE | 2019-08-24 06:42 | NUR ---
CLOSING NOTE: Patient is awake at this time, AOx4. No s/s of acute distress noted. Breathing is even and unlabored. IVF infusing well. IV site without s/s of infection or infiltration. All fall/safety/isolation precautions maintained throughout the shift. All needs met throughout the shift. Will continue to monitor until endorsement of care to dayshift nurse.
[2019-08-24 08:00] VITALS: BP_SYST 127
--- NOTE | 2019-08-24 08:00 | NUR ---
ASSUMPTION OF CARE: RECEIVED PT A/A/OX4, DX: RISK FOR INJURY/FALL, R/T INTRACTABLE DIZZINESS, PT IS AFEBRILE, VSS, NO S/S OF DISTRESS, BEDREST, AMBULATORY WITH ASSIST, IV SITE INTACT, PATENT, NO REDNESS OR SWELLING, BREATH SOUNDS ARE CLEAR, BREATHING UNLABORED, SATURATING 96% ORA, ORIENTED TO UNIT, CALL LIGHT PLACED WITHIN REACH, WILL CONT' TO MONITOR AND ASSESS.
[2019-08-24] MEDS: CHOLECALCIFEROL (VITAMIN D3) 2,000 UNIT TABLET PO SCH (09:00)
[2019-08-24] MEDS: ASCORBIC ACID 500 MG TABLET PO SCH (09:00)
[2019-08-24] MEDS: AZITHROMYCIN 250 MG TABLET PO SCH (09:00)
--- NOTE | 2019-08-24 09:00 | NUR ---
BAG BUNDLER: MORNING MEDS GIVEN, PER ORDERED BY Lulu, TOLERATED WELL, WILL CONT' WITH POC.
[2019-08-24 09:53] LABS: CALCIUM 7.7 mg/dL (8.4-11.0); CREATININE 3.03 mg/dL (0.55-1.30); POTASSIUM 3.8 mmol/L (3.5-5.1)
--- NOTE | 2019-08-24 11:30 | NUR ---
GLUCOSE MONITORING: BLOOD SUGAR LEVEL= 137, NO COVERAGE REQUIRED, TOLERATING WELL, CALL LIGHT WITHIN REACH, WILL CONT' TO MONITOR AND ASSESS.
--- NOTE | 2019-08-24 11:36 | NUR ---
Dietitian Recommendations *Recommend adding Glucerna Shake TID. ONS will provide additional 660 kcal and 30gm protein daily. *Continue [facility] diet. *Continue VIT D, VIT C and zinc supplements. Please see Nutritional Assessment for details. HENNA, RD
[2019-08-24 12:00] VITALS: BP_SYST 143
--- NOTE | 2019-08-24 14:00 | NUR ---
NURSES NOTES: PT REMAINS RELAXED, QUIET, NO C/O DISCOMFORT OF ANY KIND, NO C/O DIZZINESS, NO INDICATION OF PAIN, NEEDS MET, CALL LIGHT PLACED WITHIN REACH, WILLL CONT' TO MONITOR AND ASSESS.
[2019-08-24 16:00] VITALS: BP_SYST 144
--- NOTE | 2019-08-24 17:00 | NUR ---
GLUCOSE MONITORING: BLOOD SUGAR LEVEL= 203, 4 UNITS REGULAR INSULIN COVERAGE GIVEN, TOLERATING WELL, CALL LIGHT WITHIN REACH, WILL CONT' TO MONITOR AND ASSESS.
--- NOTE | 2019-08-24 19:30 | NUR ---
OPENING NOTES RECEIVED SBAR REPORT FROM DAY SHIFT RN. PT RESTING IN BED, ALERT & ORIENTED X4. VSS. O2 SAT 95%. BREATHING EVEN AND UNLABORED TO ROOM AIR. NO S/S OF DISTRESS NOTED. IVF RUNNING ORDERED RATE. NO S/S OF INFILTRATION NOTED. CALL LIGHT WITHIN REACH. SAFETY AND ISOLATION PRECAUTIONS MAINTAINED. WILL CONTINUE TO MONITOR.
[2019-08-24 20:00] VITALS: BP_SYST 146
--- NOTE | 2019-08-24 21:00 | NUR ---
MEDICATION PASSED SCHEDULED MEDICATIONS ADMINISTERED ORDERED. BLOOD SUGAR OF 196. ADMINISTERED 2 UNITS OF REGULAR INSULIN. PT TOLERATED WELL. NO S/S OF PAIN OR SHORTNESS OF BREATH NOTED. BREATHING IS EVEN AND UNLABORED TO ROOM AIR. CALL LIGHT WITHIN REACH. SIDE RAILS X3. BED LOCKED IN LOWEST LEVEL. WILL CONTINUE TO MONITOR.
--- NOTE | 2019-08-24 23:20 | NUR ---
RN ROUNDS PT RESTING IN BED. ABLE TO SEE RISE AND FALL RESPIRATIONS. NO S/S OF ACUTE DISTRESS NOTED. IVF RUNNING ORDERED RATE. PT TOLERATING WELL. PT KINGA ANY PAIN AT THIS TIME. CALL LIGHT WITHIN REACH. SAFETY AND ISOLATION PRECAUTIONS MAINTAINED. WILL CONTINUE TO MONITOR.
[2019-08-25] VITALS: BP_SYST 139
[2019-08-25] MEDS: NACL 0.9% 1,000 ML IV SCH (00:10)
--- NOTE | 2019-08-25 00:30 | NUR ---
MIDNIGHT VITAL SIGN VSS. O2 SAT 97%. PT RESTING IN BED, KINGA ANY PAIN AT THIS TIME. NO S/SO OF SHORTNESS OF BREATH NOTED. CALL LIGHT WITHIN REACH. SIDE RAILS X3. BED LOCKED IN LOWEST LEVEL. SAFETY AND ISOLATION PRECAUTIONS IN PLACE. WILL CONTINUE TO MONITOR.
--- NOTE | 2019-08-25 02:30 | NUR ---
RN ROUNDS PT SLEEPING. NO S/S OF DISTRESS NOTED. BREATHING EASY AND UNLABORED TO ROOM AIR. IVF RUNNING ORDERED RATE. NO S/S OF INFILTRATION NOTED. BED LOCK IN LOWEST LEVEL. SAFETY AND ISOLATION PRECAUTIONS MAINTAINED. WILL CONTINUE TO MONITOR.
--- NOTE | 2019-08-25 04:31 | NUR ---
RESTING PT RESTING IN BED. NO SIGNS AND SYMPTOMS OF PAIN NOTED. BREATHING IS EVEN AND UNLABORED TO ROOM AIR. IVF RUNNING ORDERED RATE. PT TOLERATING WELL. CALL LIGHT WITHIN REACH. BED LOCKED IN LOWEST LEVEL. SAFETY AND ISOLATION PRECAUTIONS MAINTAINED. WILL CONTINUE TO MONITOR.
[2019-08-25] MEDS: ENOXAPARIN SODIUM 80 MG/0.8 ML SYRINGE SUBCUT SCH (06:00)
--- NOTE | 2019-08-25 06:52 | NUR ---
CLOSING NOTES PT RESTING IN BED. BREATHING EVEN AND UNLABORED TO ROOM AIR. NO S/S OF DISTRESS NOTED. IVF RUNNING ORDERED RATE. NO S/S OF INFILTRATION NOTED. CALL LIGHT WITHIN REACH. SAFETY AND ISOLATION PRECAUTIONS MAINTAINED. ALL NEEDS ARE MET THROUGHOUT SHIFT. WILL CONTINUE TO MONITOR UNTIL ENDORSE TO DAY SHIFT RN.
[2019-08-25 07:02] LABS: BASOPHILS % (AUTO) 0.3 % (0.0-2.0); EOSINOPHILS # (AUTO) 0.1 K/uL (0.0-0.4); EOSINOPHILS % (AUTO) 1.1 % (0.0-4.0); HEMATOCRIT 27.1 % (36-54); HEMOGLOBIN 9.5 g/dL (14.0-18.0); LYMPHOCYTES # (AUTO) 1.2 K/uL (1.0-5.5); LYMPHOCYTES % (AUTO) 25.6 % (20.5-51.5); MEAN CORPUSCULAR HEMOGLOBIN 32 pg (27-31); MEAN CORPUSCULAR HGB CONC 35 % (32-36); MEAN CORPUSCULAR VOLUME 91 fL (79.0-98.0); MONOCYTES # (AUTO) 0.4 K/uL (0.0-1.0); MONOCYTES % (AUTO) 8.9 % (1.7-9.3); NEUTROPHILS # (AUTO) 2.9 K/uL (1.8-7.7); NEUTROPHILS % (AUTO) 64.1 % (40.0-70.0); PLATELET COUNT (AUTO) 220 K/uL (130-430); RED BLOOD CELL COUNT(AUTO) 2.97 MIL/uL (4.2-6.2); WHITE BLOOD COUNT (AUTO) 4.5 K/uL (4.8-10.8)
[2019-08-25 07:26] LABS: CALCIUM 7.9 mg/dL (8.4-11.0); CREATININE 2.6 mg/dL (0.55-1.30); POTASSIUM 4.1 mmol/L (3.5-5.1); TOTAL BILIRUBIN 0.3 mg/dL (0.0-1.0)
[2019-08-25 08:00] VITALS: BP_SYST 146
[2019-08-25] MEDS ORDERED: APIX2.5T PO (08:41)
[2019-08-25] MEDS ORDERED: ZINC220T4 PO (08:41)
[2019-08-25] MEDS ORDERED: ASCO500T20 PO (08:41)
[2019-08-25] MEDS ORDERED: VITD2000 PO (08:41)
--- NOTE | 2019-08-25 09:00 | NUR ---
PROFESSOR OF PHILOSOPHY: MORNING MEDS GIVEN, PER ORDERED BY Lulu, TOLERATED WELL, WILL CONT' WITH POC.
[2019-08-25] MEDS: CHOLECALCIFEROL (VITAMIN D3) 2,000 UNIT TABLET PO SCH (09:06)
[2019-08-25] MEDS: ASCORBIC ACID 500 MG TABLET PO SCH (09:06)
[2019-08-25] MEDS: AZITHROMYCIN 250 MG TABLET PO SCH (09:07)
[2019-08-25 09:10] VITALS: BP_SYST 146
--- NOTE | 2019-08-25 11:30 | NUR ---
DISCHARGE: PT HAS ORDER FOR DISCHARGE TO HOME, INSTRUCTIONS GIVEN FOR NEW PRESCRIPTION MEDS AND MED RECONCILIATION, VERBALIZES UNDERSTANDING, VSS, IV SITE DISCONTINUED, PRESSURE DRSG APPLIED, EDUCATION GIVEN ON HOME ISOLATION AND CARE, FOLLOW-UP WITH PCP IN 1-2 WEEKS, PT AND FAMILY VERBALIZES UNDERSTANDING, PT LEFT WITH FAMILY MEMBERS, VIA PRIVATE AUTO.
--- NOTE | 2019-09-01 14:59 | NUR ---
DC Follow up Phone Call: APPRENTICE PAINTER HAND contacted Pt to inquiry how he has been doing since his DC from Hospital. Pt. reported that he has he continued to in Isolation with his sister in [place] He has been able to obtain his prescription for COVID tx, he was DC from diabetic medications but per his PCP has been taking one a day because his sugar is in the 400s. He will schedule appointment tomorrow for his follow up with PCP, high sugar and re-test for COVID. Pt. also wants to change his PCP to the [place] area, was advised to contact [facility] for providers once he completes his follow up.
== END 2019-08-25 11:18 | disposition home or self-care (01) | DRG 137 ==
LOC: SED 20:09 → STU 08-20 00:16 → EEVIPCON 08-20 00:16 → STU 08-20 01:59
PROVIDERS: ADMIT General Practice; ATTEND General Practice
DX: U07.1 COVID-19 (principal); N17.0 Acute kidney failure with tubular necrosis; E43 Unspecified severe protein-calorie malnutrition; J80 Acute respiratory distress syndrome; D72.810 Lymphocytopenia; J12.89 Other viral pneumonia; E11.22 Type 2 diabetes mellitus with diabetic chronic kidney disease; E11.649 Type 2 diabetes mellitus with hypoglycemia without coma; E11.43 Type 2 diabetes mellitus with diabetic autonomic (poly)neuropathy; I12.9 Hypertensive chronic kidney disease with stage 1 through stage 4 chronic kidney disease, or unspecified chronic kidney disease; E11.65 Type 2 diabetes mellitus with hyperglycemia; E87.1 Hypo-osmolality and hyponatremia; N18.9 Chronic kidney disease, unspecified; G90.8 Other disorders of autonomic nervous system; Z79.899 Other long term (current) drug therapy; Z68.26 Body mass index [BMI] 26.0-26.9, adult
CPT/HCPCS: 36415; 70450-TC; 71045; 78580-TC; 80048; 80053; 81000-TC; 82728; 82962; 83615-TC; 83880; 84484; 85025; 85379; 85651-TC; 86140; 86886; 86900; 86901; 87040-TC; 87081; 93005; 93970; 96374; 96376; 99285; A9540; G0378; J0360; J1644; J1650; J1815; J7030; J7042; J7060; Q0144; U0003-CS

== ENCOUNTER 2023-05-21 09:26 | Inpatient (IN) | payer BC, MEDICAID ==
[~2023-05-21] VITALS: Ht 167.6 cm; Wt 75.8 kg
[~2023-05-21 09:26] MED LIST changes: -AMLO2.5T2 PO; +APIX2.5T PO; +ASCO500T20 PO; -BRI.2% EACH EYE; -SIMV40TA5 PO; +VITD2000 PO; -XALEYE OP; +ZINC220T4 PO
[2023-05-21 09:39] VITALS: BP_SYST 170; PULSE 61; RESP 19; TEMP 98.4; O2SAT 99
[2023-05-21 10:49] LABS: BASOPHILS # (AUTO) 0.1 K/uL (0.0-0.2); EOSINOPHILS # (AUTO) 0.1 K/uL (0.0-0.4); HEMATOCRIT 30.7 % (36-54); HEMOGLOBIN 10.4 g/dL (14.0-18.0); LYMPHOCYTES # (AUTO) 1.7 K/uL (1.0-5.5); LYMPHOCYTES % (AUTO) 30.2 % (20.5-51.5); MEAN CORPUSCULAR HEMOGLOBIN 32 pg (27-31); MEAN CORPUSCULAR HGB CONC 34 % (32-36); MEAN CORPUSCULAR VOLUME 94 fL (79.0-98.0); MONOCYTES # (AUTO) 0.3 K/uL (0.0-1.0); MONOCYTES % (AUTO) 4.6 % (1.7-9.3); NEUTROPHILS # (AUTO) 3.4 K/uL (1.8-7.7); NEUTROPHILS % (AUTO) 62.2 % (40.0-70.0); PLATELET COUNT (AUTO) 228 K/uL (130-430); RED BLOOD CELL COUNT(AUTO) 3.29 MIL/uL (4.2-6.2); RED CELL DISTRIBUTION WIDTH 13.2 % (9.0-15.0); WHITE BLOOD COUNT (AUTO) 5.5 K/uL (4.8-10.8)
[2023-05-21 11:02] LABS: PROTHROMBIN TIME 10.3 SECS (9.5-12.5)
[2023-05-21 11:06] LABS: ALANINE AMINOTRANSFERASE 13 U/L (12-78); ALBUMIN 3.6 g/dL (3.4-4.8); AMYLASE 114 U/L (0-100); ANION GAP 12 (5-15); ASPARTATE AMINOTRANSFERASE < 5 U/L (10-37); BILIRUBIN,DIRECT 0.1 mg/dL (0.0-0.3); CARBON DIOXIDE 21 mmol/L (23-29); CHLORIDE 105 mmol/L (98-107); GFR AFRICAN AMERICAN 5 mL/min (>90); GLUCOSE 131 mg/dL (74-106); LIPASE 138 U/L (16-77); SODIUM SERUM 138 mmol/L (136-145); TOTAL BILIRUBIN 0.3 mg/dL (0.0-1.0); TOTAL PROTEIN, SERUM 7.8 g/dL (6.4-8.3)
[2023-05-21 11:07] LABS: GFR NON AFRICAN-AMERICAN 4 mL/min (>90)
[2023-05-21 11:10] LABS: UREA NITROGEN, BLOOD 144 mg/dL (8-21)
[2023-05-21 11:11] LABS: CREATININE 13.14 mg/dL (0.55-1.30)
[2023-05-21] MEDS ORDERED: SODIUM BICARBONATE 8.4% JECT 50 MEQ/50 ML SYRINGE ONE (11:15)
[2023-05-21] MEDS: SODIUM BICARBONATE 8.4% VIAL 50 MEQ/50 ML VIAL INJ ONE (11:24)
[2023-05-21] MEDS: DEXTROSE 50% JECT 50 ML DISP.SYRIN IVP ONE (12:07)
[2023-05-21] MEDS: INSULIN REGULAR, HUMAN 10 UNITS/0.1 ML, 3 ML VIAL IVP ONE (12:21)
[2023-05-21 12:25] LABS: BILIRUBIN,URINE NEGATIVE (NEGATIVE); CLARITY/URINE CLEAR (CLEAR); COLOR,URINE YELLOW (YELLOW); GLUCOSE,URINE 2+ (NEGATIVE); KETONES,URINE NEGATIVE (NEGATIVE); LEUKOCYTE ESTERASE ,URINE NEGATIVE (NEGATIVE); NITRITE, URINE NEGATIVE (NEGATIVE); PROTEIN URINE 2+ (NEGATIVE); UROBILINOGEN,URINE 0.2 (0.2-1.0)
[2023-05-21] MEDS ORDERED: CALCIUM GLUCONATE 1 GM/10 ML VIAL ONE (12:26)
[2023-05-21] MEDS: CALCIUM GLUCONATE 1 GM in NS 100 ML IV ONE (12:33)
[2023-05-21 12:34] LABS: BLOOD, URINE TRACE (NEGATIVE)
[2023-05-21] MEDS: SODIUM ZIRCONIUM CYCLOSILICATE 10 GM POWD.PACK PO ONE (12:38)
[2023-05-21 12:43] LABS: BACTERIA,URINE RARE /HPF (None Seen); MUCUS,URINE 1+ /LPF (None Seen); RBC,URINE 0-3 /HPF (0-3); WBC,URINE 0-3 /HPF (0-3)
[2023-05-21 13:15] VITALS: BP_SYST 165; PULSE 71; RESP 16; TEMP 98.2; O2SAT 100
[2023-05-21] MEDS ORDERED: METO25TA6 PO (13:17)
[2023-05-21] MEDS ORDERED: POTASSIUM CHLORIDE 20 MEQ TABLET.ER PO PRN (13:30)
[2023-05-21] MEDS ORDERED: MUPIROCIN 2% TOPICAL OINTMENT 22 GM NS PRN (13:30)
[2023-05-21] MEDS ORDERED: LORazepam 2 MG/ML VIAL IVP PRN (13:30)
[2023-05-21] MEDS ORDERED: ZOLPIDEM TARTRATE 5 MG TABLET PO PRN (13:30)
[2023-05-21] MEDS ORDERED: MAGNESIUM SULFATE 50 ML IV PRN (13:30)
[2023-05-21] MEDS ORDERED: NALOXONE HCL 0.4 MG/ML AMP (NARCAN) IVP PRN ×2 (13:30)
[2023-05-21] MEDS ORDERED: MORPHINE 2 MG/ML INJ. SYRINGE IVP PRN (13:30)
[2023-05-21] MEDS ORDERED: ONDANSETRON HCL 4 MG/2 ML VIAL IVP PRN (13:30)
[2023-05-21] MEDS ORDERED: ACETAMINOPHEN 500 MG TABLET PO PRN ×2 (13:45)
[2023-05-21] MEDS: cloNIDine HCL 0.2 MG TABLET PO PRN (13:54)
[2023-05-21] MEDS: NACL 0.9% 1,000 ML IV SCH (13:55)
[2023-05-21] MEDS ORDERED: ZINC220T3 PO (14:10)
[2023-05-21] MEDS ORDERED: VITD2000 PO (14:13)
[2023-05-21 16:00] VITALS: BP_SYST 99; PULSE 64; RESP 18; TEMP 97.3; O2SAT 100
[2023-05-21] MEDS: SODIUM POLYSTYRENE SULFONATE 15 GM/60 ML UDBTL PO ONE (18:38)
[2023-05-21 19:40] VITALS: BP_SYST 167; PULSE 67; RESP 20; TEMP 98.4; O2SAT 100
[2023-05-21] MEDS: HEPARIN SODIUM,PORCINE 5,000 UNITS/ML VIAL SUBCUT SCH (21:00)
[2023-05-21] MEDS: METOPROLOL TARTRATE 25 MG TABLET PO SCH (21:09)
[2023-05-21] MEDS: LOSARTAN POTASSIUM 50 MG TABLET (COZAAR) PO SCH (21:10)
[2023-05-21] MEDS: HEPARIN SODIUM, PORCINE 10,000 UNITS/ 10 ML VIAL ONE (23:52)
[2023-05-22] VITALS (9 sets, daily range): BP systolic 99–165; PULSE 59–65; RESP 16–20; TEMP 96.8–98.5; O2SAT 98–100
[2023-05-22] MEDS: HEPARIN SODIUM, PORCINE 10,000 UNITS/ 10 ML VIAL IV ONE (01:00)
[2023-05-22 07:02] LABS: BASOPHILS % (AUTO) 0.7 % (0.0-2.0); EOSINOPHILS # (AUTO) 0.1 K/uL (0.0-0.4); EOSINOPHILS % (AUTO) 1.8 % (0.0-4.0); HEMATOCRIT 25.9 % (36-54); LYMPHOCYTES # (AUTO) 1.6 K/uL (1.0-5.5); LYMPHOCYTES % (AUTO) 32.7 % (20.5-51.5); MEAN CORPUSCULAR HEMOGLOBIN 32 pg (27-31); MEAN CORPUSCULAR HGB CONC 35 % (32-36); MEAN CORPUSCULAR VOLUME 91 fL (79.0-98.0); MONOCYTES # (AUTO) 0.4 K/uL (0.0-1.0); MONOCYTES % (AUTO) 7.2 % (1.7-9.3); NEUTROPHILS # (AUTO) 2.8 K/uL (1.8-7.7); NEUTROPHILS % (AUTO) 57.6 % (40.0-70.0); PLATELET COUNT (AUTO) 195 K/uL (130-430); RED BLOOD CELL COUNT(AUTO) 2.85 MIL/uL (4.2-6.2); RED CELL DISTRIBUTION WIDTH 13.2 % (9.0-15.0); WHITE BLOOD COUNT (AUTO) 4.9 K/uL (4.8-10.8)
[2023-05-22 07:08] LABS: POTASSIUM 4.3 mmol/L (3.5-5.1)
[2023-05-22 07:11] LABS: CREATININE 7.54 mg/dL (0.55-1.30)
[2023-05-22] MEDS ORDERED: NON-FORMULARY MEDICATION (Zinc sulfate 1 TAB) PO SCH (09:00)
[2023-05-22 13:24] LABS: ALBUMIN 2.9 g/dL (3.4-4.8); BILIRUBIN,DIRECT 0.1 mg/dL (0.0-0.3); TOTAL BILIRUBIN 0.3 mg/dL (0.0-1.0); TOTAL PROTEIN, SERUM 6.5 g/dL (6.4-8.3)
[2023-05-23 05:33] LABS: BASOPHILS % (AUTO) 0.7 % (0.0-2.0); EOSINOPHILS # (AUTO) 0.1 K/uL (0.0-0.4); EOSINOPHILS % (AUTO) 2.4 % (0.0-4.0); HEMATOCRIT 26.8 % (36-54); HEMOGLOBIN 9.2 g/dL (14.0-18.0); MEAN CORPUSCULAR HEMOGLOBIN 32 pg (27-31); MEAN CORPUSCULAR HGB CONC 35 % (32-36); MEAN CORPUSCULAR VOLUME 92 fL (79.0-98.0); MONOCYTES # (AUTO) 0.4 K/uL (0.0-1.0); MONOCYTES % (AUTO) 8.4 % (1.7-9.3); NEUTROPHILS # (AUTO) 2.7 K/uL (1.8-7.7); NEUTROPHILS % (AUTO) 50.5 % (40.0-70.0); PLATELET COUNT (AUTO) 189 K/uL (130-430); RED BLOOD CELL COUNT(AUTO) 2.91 MIL/uL (4.2-6.2); RED CELL DISTRIBUTION WIDTH 12.9 % (9.0-15.0); WHITE BLOOD COUNT (AUTO) 5.3 K/uL (4.8-10.8)
[2023-05-23 06:53] LABS: CALCIUM 8.1 mg/dL (8.4-11.0); POTASSIUM 4.5 mmol/L (3.5-5.1)
[2023-05-23 07:04] LABS: CREATININE 9.06 mg/dL (0.55-1.30)
[2023-05-23 07:57] VITALS: BP_SYST 123; PULSE 66; RESP 17; TEMP 98.3; O2SAT 99
[2023-05-23 07:59] VITALS: O2SAT 99
[2023-05-23 11:25] VITALS: BP_SYST 142; PULSE 61; RESP 16; TEMP 96.3; O2SAT 100
[2023-05-23 13:07] LABS: HEPATITIS B SURFACE AG Negative (Negative); HEPATITIS C VIRUS AB Non Reactive (Non Reactive)
[2023-05-23 15:48] VITALS: BP_SYST 156; PULSE 64; RESP 16; TEMP 96.7; O2SAT 100
[2023-05-23] MEDS: HEPARIN SODIUM,PORCINE 5,000 UNITS/ML VIAL MC ONE (16:37)
[2023-05-23 16:40] LABS: PROTHROMBIN TIME 10.4 SECS (9.5-12.5)
[2023-05-23 20:00] VITALS: BP_SYST 124; PULSE 68; RESP 18; TEMP 98.2; O2SAT 97
[2023-05-24] VITALS (7 sets, daily range): BP systolic 117–189; PULSE 66–91; RESP 16–18; TEMP 97.2–98.5; O2SAT 98–100
[2023-05-24 06:41] LABS: BASOPHILS % (AUTO) 0.7 % (0.0-2.0); EOSINOPHILS # (AUTO) 0.1 K/uL (0.0-0.4); EOSINOPHILS % (AUTO) 2.4 % (0.0-4.0); HEMATOCRIT 27.2 % (36-54); HEMOGLOBIN 9.3 g/dL (14.0-18.0); LYMPHOCYTES % (AUTO) 35.6 % (20.5-51.5); MEAN CORPUSCULAR HEMOGLOBIN 31 pg (27-31); MEAN CORPUSCULAR HGB CONC 34 % (32-36); MEAN CORPUSCULAR VOLUME 91 fL (79.0-98.0); MONOCYTES # (AUTO) 0.4 K/uL (0.0-1.0); MONOCYTES % (AUTO) 7.6 % (1.7-9.3); NEUTROPHILS % (AUTO) 53.7 % (40.0-70.0); PLATELET COUNT (AUTO) 183 K/uL (130-430); RED BLOOD CELL COUNT(AUTO) 2.98 MIL/uL (4.2-6.2); RED CELL DISTRIBUTION WIDTH 12.8 % (9.0-15.0); WHITE BLOOD COUNT (AUTO) 5.6 K/uL (4.8-10.8)
[2023-05-24 06:58] LABS: CALCIUM 8.7 mg/dL (8.4-11.0); CREATININE 6.84 mg/dL (0.55-1.30); POTASSIUM 4.2 mmol/L (3.5-5.1)
[2023-05-24] MEDS: MIDAZOLAM HCL 5 MG/5 ML VIAL ONE (14:09)
[2023-05-24] MEDS: fentaNYL CITRATE/PF 100 MCG/2 ML AMP ONE (14:10)
[2023-05-24] MEDS: LABETALOL HCL 20 MG/4 ML CARTRIDGE IVP ONE ×2 (16:27→17:15)
[2023-05-24] MEDS ORDERED: ONDANSETRON HCL 4 MG/2 ML VIAL IVP PRN (16:45)
[2023-05-24] MEDS ORDERED: MORPHINE 4 MG INJ. 4 MG/ML VIAL IVP PRN ×3 (16:45)
[2023-05-24] MEDS ORDERED: METOCLOPRAMIDE HCL 10 MG/2 ML VIAL IVP PRN (16:45)
[2023-05-25 00:04] VITALS: BP_SYST 151; PULSE 72; RESP 18; TEMP 98.1; O2SAT 98
[2023-05-25] MEDS: MORPHINE 2 MG/ML INJ. SYRINGE IVP PRN (00:18)
[2023-05-25 06:04] LABS: BASOPHILS % (AUTO) 0.5 % (0.0-2.0); EOSINOPHILS # (AUTO) 0.1 K/uL (0.0-0.4); EOSINOPHILS % (AUTO) 0.9 % (0.0-4.0); HEMATOCRIT 26.6 % (36-54); HEMOGLOBIN 9.2 g/dL (14.0-18.0); LYMPHOCYTES # (AUTO) 1.5 K/uL (1.0-5.5); LYMPHOCYTES % (AUTO) 25.9 % (20.5-51.5); MEAN CORPUSCULAR HEMOGLOBIN 32 pg (27-31); MEAN CORPUSCULAR HGB CONC 35 % (32-36); MEAN CORPUSCULAR VOLUME 92 fL (79.0-98.0); MONOCYTES # (AUTO) 0.4 K/uL (0.0-1.0); MONOCYTES % (AUTO) 7.8 % (1.7-9.3); NEUTROPHILS # (AUTO) 3.7 K/uL (1.8-7.7); NEUTROPHILS % (AUTO) 64.9 % (40.0-70.0); PLATELET COUNT (AUTO) 163 K/uL (130-430); RED BLOOD CELL COUNT(AUTO) 2.89 MIL/uL (4.2-6.2); RED CELL DISTRIBUTION WIDTH 12.8 % (9.0-15.0); WHITE BLOOD COUNT (AUTO) 5.7 K/uL (4.8-10.8)
[2023-05-25 06:25] LABS: CALCIUM 8.6 mg/dL (8.4-11.0)
[2023-05-25 07:51] LABS: CREATININE 8.17 mg/dL (0.55-1.30)
[2023-05-25 07:55] VITALS: BP_SYST 151; PULSE 65; RESP 17; TEMP 97.9; O2SAT 99
[2023-05-25 13:50] VITALS: BP_SYST 117; PULSE 83; RESP 19; TEMP 98.4; O2SAT 100
[2023-05-25] MEDS ORDERED: PROPOFOL 200MG/ 20ML VIAL (DIPRIVAN) IV ONE (15:30)
[2023-05-25] MEDS ORDERED: SUCCINYLCHOLINE CHLORIDE 20 MG/ML(QUELICIN) ONE (15:30)
[2023-05-25] MEDS ORDERED: SEVOFLURANE 15 MIN GAS INH ONE (15:30)
[2023-05-25] MEDS ORDERED: NS IRRIG SOLN 1000 ML IR ONE (15:30)
[2023-05-25] MEDS ORDERED: NS 50 ML BAG IV ONE (15:30)
[2023-05-25] MEDS ORDERED: ePHEDrine sulfate 50 MG/ML VIAL ONE (15:30)
[2023-05-25] MEDS ORDERED: LIDOCAINE/EPI 1% 1:100000 20 ML VIAL ONE (15:30)
[2023-05-25] MEDS ORDERED: HEPARIN SODIUM,PORCINE/NS/PF 1,000 UNITS/500 ML BAG IV ONE (15:30)
[2023-05-25 16:00] VITALS: BP_SYST 118; PULSE 90; RESP 18; TEMP 98.4; O2SAT 100
[2023-05-25 17:37] VITALS: O2SAT 97
[2023-05-25 20:03] VITALS: BP_SYST 141; PULSE 84; RESP 18; TEMP 99.5; O2SAT 98
[2023-05-26] VITALS (8 sets, daily range): BP systolic 127–141; PULSE 71–88; RESP 16–20; TEMP 97.2–99.1; O2SAT 94–100
[2023-05-26 00:06] LABS: QUANTIFERON TB GOLD Positive (Negative)
[2023-05-26 06:14] LABS: BASOPHILS % (AUTO) 0.5 % (0.0-2.0); EOSINOPHILS # (AUTO) 0.1 K/uL (0.0-0.4); EOSINOPHILS % (AUTO) 1.4 % (0.0-4.0); HEMATOCRIT 25.4 % (36-54); HEMOGLOBIN 8.7 g/dL (14.0-18.0); LYMPHOCYTES % (AUTO) 29.5 % (20.5-51.5); MEAN CORPUSCULAR HEMOGLOBIN 32 pg (27-31); MEAN CORPUSCULAR HGB CONC 34 % (32-36); MEAN CORPUSCULAR VOLUME 91 fL (79.0-98.0); MONOCYTES # (AUTO) 0.5 K/uL (0.0-1.0); MONOCYTES % (AUTO) 7.8 % (1.7-9.3); NEUTROPHILS # (AUTO) 4.1 K/uL (1.8-7.7); NEUTROPHILS % (AUTO) 60.8 % (40.0-70.0); PLATELET COUNT (AUTO) 154 K/uL (130-430); RED BLOOD CELL COUNT(AUTO) 2.78 MIL/uL (4.2-6.2); RED CELL DISTRIBUTION WIDTH 12.6 % (9.0-15.0); WHITE BLOOD COUNT (AUTO) 6.8 K/uL (4.8-10.8)
[2023-05-26 06:52] LABS: CALCIUM 8.2 mg/dL (8.4-11.0); CREATININE 6.11 mg/dL (0.55-1.30); POTASSIUM 3.4 mmol/L (3.5-5.1)
[2023-05-26] MEDS ORDERED: GLUCOSE (DEXTROSE) ORAL GEL -Adults PO PRN (16:30)
[2023-05-26] MEDS ORDERED: DEXTROSE 50% JECT 50 ML DISP.SYRIN IVP PRN (16:30)
[2023-05-26] MEDS ORDERED: D5W 1,000 ML IV PRN (16:30)
[2023-05-26] MEDS: INSULIN REGULAR, HUMAN 100 UNITS/ML, 3 ML VIAL (humuLIN R) SUBCUT PRN (16:41)
[2023-05-26] MEDS: DOCUSATE SODIUM 100 MG CAPSULE PO PRN (18:09)
[2023-05-26] MEDS: BISACODYL 10 MG/SUPPOSITORY RC ONE (19:15)
[2023-05-26] MEDS: POLYETHYLENE GLYCOL 3350, 17 GM/ POWD.PACK PO ONE (23:39)
[2023-05-27] VITALS (7 sets, daily range): BP systolic 120–159; PULSE 71–86; RESP 14–18; TEMP 97.6–99.1; O2SAT 97–100
[2023-05-27] MEDS: POLYETHYLENE GLYCOL 3350, 17 GM/ POWD.PACK PO SCH (09:13)
[2023-05-27] MEDS ORDERED: INSU100I72 SUBCUT (13:24)
[2023-05-27] MEDS: INSULIN GLARGINE 100 UNITS/ML, 10 ML VIAL SUBCUT ONE (14:31)
[2023-05-27] MEDS: HEPARIN SODIUM,PORCINE 5,000 UNITS/ML VIAL MC ONE (16:19)
[2023-05-27] MEDS: INSULIN GLARGINE 100 UNITS/ML, 10 ML VIAL SUBCUT SCH (21:33)
[2023-05-27] MEDS: INSULIN REGULAR, HUMAN 100 UNITS/ML, 3 ML VIAL SUBCUT ONE (23:37)
[2023-05-28 00:59] VITALS: BP_SYST 119; PULSE 87; RESP 18; TEMP 97.8; O2SAT 97
[2023-05-28 06:50] LABS: ALBUMIN 2.8 g/dL (3.4-4.8); CALCIUM 8.8 mg/dL (8.4-11.0); CREATININE 6.52 mg/dL (0.55-1.30); POTASSIUM 4.6 mmol/L (3.5-5.1); TOTAL BILIRUBIN 0.3 mg/dL (0.0-1.0); TOTAL PROTEIN, SERUM 7.1 g/dL (6.4-8.3)
[2023-05-28 08:00] VITALS: O2SAT 99
[2023-05-28] MEDS: ACETAMINOPHEN 500 MG TABLET PO PRN (08:34)
[2023-05-28 08:42] VITALS: BP_SYST 124; PULSE 77; RESP 16; TEMP 97.5; O2SAT 99
[2023-05-28 10:09] VITALS: BP_SYST 125; PULSE 79; RESP 18; TEMP 97
== END 2023-05-28 11:05 | disposition home or self-care (01) | DRG 673 ==
LOC: SED 09:26 → EEVIPCON 12:18 → STU 12:18 → SMU 05-27 22:25
PROVIDERS: ADMIT Specialist; ATTEND Specialist
PROC: 5A1D70Z Performance of Urinary Filtration, Intermittent, Less than 6 Hours Per Day (ICD-10-PCS; principal; 2023-05-21)
PROC: 02H633Z Insertion of Infusion Device into Right Atrium, Percutaneous Approach (ICD-10-PCS; 2023-05-22)
PROC: 5A1D70Z Performance of Urinary Filtration, Intermittent, Less than 6 Hours Per Day (ICD-10-PCS; 2023-05-22)
PROC: 5A1D70Z Performance of Urinary Filtration, Intermittent, Less than 6 Hours Per Day (ICD-10-PCS; 2023-05-23)
PROC: 0JH63XZ Insertion of Tunneled Vascular Access Device into Chest Subcutaneous Tissue and Fascia, Percutaneous Approach (ICD-10-PCS; 2023-05-24)
PROC: B548ZZA Ultrasonography of Superior Vena Cava, Guidance (ICD-10-PCS; 2023-05-24)
PROC: 02HV33Z Insertion of Infusion Device into Superior Vena Cava, Percutaneous Approach (ICD-10-PCS; 2023-05-24)
PROC: B518ZZA Fluoroscopy of Superior Vena Cava, Guidance (ICD-10-PCS; 2023-05-24)
PROC: 02PA33Z Removal of Infusion Device from Heart, Percutaneous Approach (ICD-10-PCS; 2023-05-24)
DX: I12.0 Hypertensive chronic kidney disease with stage 5 chronic kidney disease or end stage renal disease (principal); N17.0 Acute kidney failure with tubular necrosis; N18.6 End stage renal disease; E87.5 Hyperkalemia; E83.51 Hypocalcemia; E11.21 Type 2 diabetes mellitus with diabetic nephropathy; D63.1 Anemia in chronic kidney disease; E83.42 Hypomagnesemia; E11.65 Type 2 diabetes mellitus with hyperglycemia; E11.22 Type 2 diabetes mellitus with diabetic chronic kidney disease; Z91.158 Patient's noncompliance with renal dialysis for other reason
CPT/HCPCS: 36415; 71045; 76000; 76937; 80048; 80053; 80076; 81000; 81001; 81015; 82150; 82948; 83037; 83690; 83735; 83880; 84132; 84484; 85025; 85610; 85730; 86480; 86707; 86803; 86886; 86900; 86901; 87081; 87340; 90935; 90937; 93005; 96365; 96375; 97110-GP; 97112-GP; 97116-GP; 97530-GP; 99291; G0378; J0330; J0610; J1644; J1815; J2250; J2270; J2704; J3010